=== PATIENT | female | born 1995 | race African-American/Black ===

== ENCOUNTER 2023-05-20 21:11 | Emergency (ER) | payer MEDICAID ==
[2023-05-20 21:13] VITALS: PULSE 106; RESP 16
== END 2023-05-21 03:27 | disposition left against medical advice (07) ==
LOC: ER 21:24
DX: R10.9 Unspecified abdominal pain (principal); Z53.21 Procedure and treatment not carried out due to patient leaving prior to being seen by health care provider
CPT/HCPCS: 99281